=== PATIENT | male | born 1955 ===

== ENCOUNTER 2016-12-28 18:27 | Emergency (ER) | payer MEDICAID ==
[2016-12-28 18:36] VITALS: PULSE 76; RESP 16
--- NOTE | 2016-12-28 19:06 | EDPHY ---
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 HPI: 61-year-old male with a history of type 1 diabetes was walking on the [place] path when he started developing dizziness. Then states his vision went dark any developed gradual onset of a headache to about an 8 on 10. This lasted about 15 or 20 minutes. Symptoms have since resolved. Did not have any loss of conscious. No chest pain or shortness of breath. No palpitations. Did not fall or sustain any trauma. Does not have a history of the same. ROS: 10 point Review of Systems is negative except as noted in the HPI. PMH: Diabetes, hypertension, BPH, hyperlipidemia Medications: Diabetes and hypertensive medications Allergies: Penicillin Social History: No smoking, occasional alcohol, no recreational drug use Family History: non-contributory Physical Exam: Gen: Awake, Alert, No Distress HEENT: Nose: no rhinorrhea Eyes: PERRLA, EOMI, visual acuity is 20/40 bilaterally. Normal visual gamble Mouth: Moist mucosa Neck: Supple, no JVD Chest: nontender, lungs clear to auscultation Heart: S1, S2 normal, no murmur Abd: Soft, non-tender, no guarding Back: no CVA tenderness, no midline tenderness Ext: no edema, non-tender Skin: no rash Neuro: CN II-XII intact, Sensation grossly intact, Strength 5/5 in bilateral upper and lower extremities, normal finger-nose, - Personal History Current Tetanus/Diphtheria Vaccine: Unsure Current Tetanus Diphtheria and Acellular Pertussis (TDAP): Unsure - Medical/Surgical History Hx Asthma: No Hx Chronic Respiratory Disease: No Hx Diabetes: Yes Hx Cardiac Disease: No Hx Renal Disease: No Hx Cirrhosis: No Hx Alcoholism: No Hx HIV/AIDS: No Hx Splenectomy or Spleen Trauma: No Other PMH: NIDDM. htn - Social History Smoking Status: Never smoked Constitutional: Initial Vital Signs Temperature (C) 36.7 C 12/28/16 18:32 Heart Rate 76 12/28/16 18:32 Respiratory Rate 16 12/28/16 18:32 Blood Pressure 139/80 H 12/28/16 18:32 O2 Sat (%) 97 12/28/16 18:32 O2 Delivery Mode Room Air Allergies/Adverse Reactions: penicillin G Allergy (Verified 12/28/16 18:29) Home Medications: Medication Instructions Recorded Atenolol 12/28/16 Lisinopril 12/28/16 Metformin 1000 mg 12/28/16 Medical Decision Making - Diagnostics EKG Interpretation: ECG time 7:11 p.m., sinus rhythm with a rate of 78, normal axis, normal intervals, no acute ST or T-wave changes. Impression: Normal ECG. ED Course/Re-evaluation: Patient is feeling improved. Headache is down to a 2 or 3/10. ECG is normal. He does have a mild hyponatremia. Troponin is normal. CBC is normal. He has no focal neurologic deficits. Has not had any chest pain or shortness of breath. Patient does admit that he has not been drinking much fluid today. Symptoms are likely presyncopal a think likely secondary to dehydration. He has been given a L normal saline here. Will discharge with follow-up with primary care physician in 2-3 days. He will return sooner for any concerns. He has also been given Tylenol with significant relief of his pain. - Data Points Laboratory Results: Laboratory Results 12/28/16 18:50 12/28/16 18:50 12/28/16 12/28/16 12/28/16 18:53 18:50 18:50 WBC 6.79 10^3/uL 10^3/uL (3.80-9.50) RBC 5.24 10^6/uL 10^6/uL (4.40-6.38) Hgb 16.4 g/dL g/dL (13.7-17.5) Hct 43.8 % % (40.0-51.0) MCV 83.6 fL fL (81.5-99.8) MCH 31.3 pg pg (27.9-34.1) MCHC 37.4 g/dL H g/dL (32.4-36.7) RDW 11.8 % % (11.5-15.2) Plt Count 178 10^3/uL 10^3/uL (150-400) MPV 11.5 fL fL (8.7-11.7) Neut % (Auto) 54.8 % % (39.3-74.2) Lymph % (Auto) 32.8 % % (15.0-45.0) Mckenzie % (Auto) 10.3 % % (4.5-13.0) Eos % (Auto) 1.6 % % (0.6-7.6) Baso % (Auto) 0.4 % % (0.3-1.7) Nucleat RBC Rel Count 0.0 % % (0.0-0.2) Absolute Neuts (auto) 3.71 10^3/uL 10^3/uL (1.70-6.50) Absolute Lymphs (auto) 2.23 10^3/uL 10^3/uL (1.00-3.00) Absolute Monos (auto) 0.70 10^3/uL 10^3/uL (0.30-0.80) Absolute Eos (auto) 0.11 10^3/uL 10^3/uL (0.03-0.40) Absolute Basos (auto) 0.03 10^3/uL 10^3/uL (0.02-0.10) Absolute Nucleated RBC 0.00 10^3/uL 10^3/uL (0-0.01) Immature Gran % 0.1 % % (0.0-1.1) Immature Gran # 0.01 10^3/uL 10^3/uL (0.00-0.10) Sodium 128 mEq/L L mEq/L (134-144) Potassium 4.4 mEq/L mEq/L (3.5-5.2) Chloride 88 mEq/L L mEq/L (97-110) Carbon Dioxide 23 mEq/l mEq/l (22-31) Anion Gap 17 mEq/L H mEq/L (8-16) BUN 17 mg/dL mg/dL (7-23) Creatinine 1.1 mg/dL mg/dL (0.7-1.3) Estimated GFR > 60 Glucose 157 mg/dL H mg/dL (70-100) POC Glucose 167 mg/dL H mg/dL (70-100) Calcium 10.3 mg/dL mg/dL (8.5-10.4) Troponin I < 0.012 ng/mL ng/mL (0-0.034) Medications Given: Discontinued Medications Sodium Chloride (Ns) 1,000 mls @ 0 mls/hr IV ONCE ONE; Wide Open PRN Reason: Protocol Stop: 12/28/16 19:35 Last Admin: 12/28/16 19:37 Dose: 1,000 mls Point of Care Test Results: 12/28/16 18:53 POC Glucose 167 H Departure - Departure Disposition: Home, Routine, Self-Care Clinical Impression: Near syncope, Hyponatremia Condition: Good Instructions: Hyponatremia (ED), Near Syncope (ED) Additional Instructions: Return to the emergency department for increasing lightheadedness, worsening headache, nausea, vomiting, fevers, chills, chest pain, shortness of breath, or any other concerns. Follow up with primary care physician in 3-4 days for further evaluation of your low sodium levels. Referrals: UNKNOWN,DOCTOR [Other] - As per Instructions
[2016-12-28 19:14] LABS: % IMMATURE GRANULYOCYTES 0.1 % (0.0-1.1); ABSOLUTE IMMATURE GRANULOCYTES 0.01 10^3/uL (0.00-0.10); ADD DIFF? NO; ADD MORPH? NO; ADD SCAN? NO; ATYPICAL LYMPHOCYTE FLAG 10 (0-99); FRAGMENT RBC FLAG 0 (0-99); HEMATOCRIT 43.8 % (40.0-51.0); HEMOGLOBIN 16.4 g/dL (13.7-17.5); LEFT SHIFT FLG 0 (0-99); LIPEMIA HEMOLYSIS FLAG 90 (0-99); MEAN CELL HEMOGLOBIN 31.3 pg (27.9-34.1); MEAN CELL HEMOGLOBIN CONCENTR. 37.4 g/dL (32.4-36.7); MEAN CELL VOLUME 83.6 fL (81.5-99.8); MEAN PLATELET VOLUME 11.5 fL (8.7-11.7); PLATELET CLUMPS FLAG 0 (0-99); PLATELET COUNT 178 10^3/uL (150-400); RED BLOOD CELL COUNT 5.24 10^6/uL (4.40-6.38); RED CELL DISTRIBUTION WIDTH 11.8 % (11.5-15.2)
--- NOTE | 2016-12-28 19:14 | CPEKG ---
Heart Rate: 78 RR Interval: 769 P-R Interval: 172 QRSD Interval: 100 QT Interval: 396 QTC Interval: 452 P Randall: 65 QRS Randall: 72 T Wave Randall: 64 EKG Severity - NORMAL ECG - EKG Impression: SINUS RHYTHM Electronically Signed By: John Almonte 28-Dec-2016 20:30:48
[2016-12-28 19:27] LABS: ANION GAP 17 mEq/L (8-16); CALCIUM 10.3 mg/dL (8.5-10.4); CARBON DIOXIDE 23 mEq/l (22-31); CHLORIDE 88 mEq/L (97-110); CREATININE 1.1 mg/dL (0.7-1.3); GLOMERULAR FILTRATION RATE > 60; GLUCOSE 157 mg/dL (70-100); POTASSIUM 4.4 mEq/L (3.5-5.2); SODIUM 128 mEq/L (134-144)
[2016-12-28] MEDS ORDERED: NS 1,000 ML IV ONE (19:34)
[2016-12-28 19:38] LABS: TROPONIN I < 0.012 ng/mL (0-0.034)
[2016-12-28] MEDS ORDERED: ACETAMINOPHEN 500 MG TAB PO ONE (20:26)
[2016-12-28 20:49] VITALS: BP 120/68; O2SAT 96
[2016-12-28 21:10] VITALS: TEMP 97.7
== END 2016-12-28 21:10 | disposition home or self-care (01) ==
DX: R55 Syncope and collapse (principal); E87.1 Hypo-osmolality and hyponatremia; E86.9 Volume depletion, unspecified; I10 Essential (primary) hypertension; E10.9 Type 1 diabetes mellitus without complications
CPT/HCPCS: 82947-QW